=== PATIENT | female | born 1990 | race Caucasian/White ===

== ENCOUNTER 2019-05-22 10:18 | Emergency (ER) | payer MEDICAID, OTHER ==
[2019-05-22] MEDS ORDERED: NORMAL SALINE 1000 ML 1,000 ML IV ONE (10:54)
[2019-05-22] MEDS ORDERED: MECLIZINE HCL 25 MG TABLET PO ONE (10:55)
[2019-05-22] MEDS ORDERED: ONDANSETRON HCL INJ/PF 4 MG/2 ML SDV IV ONE (10:55)
[2019-05-22] MEDS ORDERED: DIAZEPAM INJ 10 MG/2 ML DISP.SYRIN IV ONE (10:56)
--- NOTE | 2019-05-22 10:59 | ER Document Report ---
ED Medical Screen (RME) - General Chief Complaint: General Weakness Stated Complaint: WEAKNESS Time Seen by Provider: 05/22/19 10:48 Primary Care Provider: SOL CASE MD [Primary Care Provider] - Follow up as needed Notes: HPI: 28-year-old female presenting with sudden onset of dizziness that began around 2 PM yesterday. Patient states that she has both a room spinning and off-balance sensation. This was accompanied by multiple episodes of vomiting. No trauma fever or recent illness. Went to [facility] yesterday, was given medication for migraine and discharged home. Symptoms have not improved she continues with nausea vomiting especially with standing or position change. No prior history of vertigo. I have greeted and performed a rapid initial assessment of this patient. A comprehensive ED assessment and evaluation of the patient, analysis of test results and completion of the medical decision making process will be conducted by additional ED providers PHYSICAL EXAMINATION: GENERAL: Well-appearing, well-nourished and in mild acute distress. HEAD: Atraumatic, normocephalic. EYES: sclera anicteric, conjunctiva are normal. Slight nystagmus with extraocular movements laterally worse to the right ENT: Moist mucous membranes. NECK: Normal range of motion LUNGS: Normal work of breathing, clear to auscultation HEART: 2+ radial pulses bilaterally, regular rate and rhythm ABD: limited by positioning for exam in triage. EXTREMITIES: no pitting or edema. No cyanosis. NEUROLOGICAL: No focal neurological deficits. Moves all extremities spontaneously and on command. No unilateral weakness is noted, no slurred speech, no facial droop PSYCH: Normal mood, normal affect. SKIN: Warm, Dry, normal turgor, no rashes or lesions noted. TRAVEL OUTSIDE OF THE [place] IN LAST 30 DAYS: No - Related Data Allergies/Adverse Reactions: No Known Allergies Allergy (Verified 05/22/19 10:49) Physical Exam - Vital signs Vitals: Temp Pulse Resp BP Pulse Ox 97.7 F 88 20 163/95 H 97 05/22/19 10:24 05/22/19 10:24 05/22/19 10:24 05/22/19 10:24 05/22/19 10:24 Course - Vital Signs Vital signs: Temp Pulse Resp BP Pulse Ox 97.7 F 88 20 163/95 H 97 05/22/19 10:24 05/22/19 10:24 05/22/19 10:24 05/22/19 10:24 05/22/19 10:24 Doctor's Discharge - Discharge Referrals: SOL CASE MD [Primary Care Provider] - Follow up as needed
--- NOTE | 2019-05-22 11:31 | RADIOLOGY REPORT (SQ) ---
EXAM DESCRIPTION: CT HEAD WITHOUT COMPLETED DATE/TIME: 05/22/2019 11:13 am REASON FOR STUDY: acute dizziness COMPARISON: None. TECHNIQUE: Axial images acquired through the brain without intravenous contrast. Images reviewed wi th bone, brain and subdural windows. Additional sagittal and coronal reconstructions were generated. Images stored on PACS. All CT scanners at this facility use dose modulation, iterative reconstruction, and/or weight based d osing when appropriate to reduce radiation dose to as low as reasonably achievable (ALARA). [facility]: Dose Right [facility]: CareDose [facility]: Dose Right [facility]: Teradose 4D [facility]: Smart RadioFrame RADIATION DOSE: CT Rad equipment meets quality standard of care and radiation dose reduction techniq ues were employed. CTDIvol: 53.2 mGy. DLP: 911 mGy-cm. mGy. LIMITATIONS: None. FINDINGS: VENTRICLES: Normal size and contour. CEREBRUM: No masses. No hemorrhage. No midline shift. No evidence for acute infarction. Normal gra y/white matter differentiation. No areas of low density in the white matter. CEREBELLUM: On axial image 7, a 1.7 x 1.3 cm area of decreased brain parenchymal attenuation is prese nt in the inferior medial right cerebellar hemisphere worrisome for an early subacute infarct, 1 day a 1-week-old. This is in the distribution of the right posterior inferior cerebellar artery. No sup erimposed acute hemorrhage. No mass effect on the 4th ventricle or posterior fossa midline shift. F indings discussed with Dr. Askew in the emergency room 1120 hours 05/22/2019. EXTRAAXIAL SPACES: No fluid collections. No masses. ORBITS AND GLOBE: No intra- or extraconal masses. Normal contour of globe without masses. CALVARIUM: No fracture. PARANASAL SINUSES: No fluid or mucosal thickening. SOFT TISSUES: No mass or hematoma. OTHER: No other significant finding. IMPRESSION: Early subacute nonhemorrhagic infarct in the inferior right cerebellar hemisphere, in th e PICA distribution. EVIDENCE OF ACUTE STROKE: YES. COMMENT: Report discussed with emergency room attending physician as above Quality ID # [id number]: Final reports with documentation of one or more dose reduction techniques (e.g., Au tomated exposure control, adjustment of the mA and/or kV according to patient size, use of iterative reconstruction technique) TECHNICAL DOCUMENTATION: JOB ID: [id number] 2010 [employer]- All Rights Reserved Reading location - IP/workstation name: [email or web address]
[2019-05-22 11:47] LABS: ABSOLUTE MONOCYTES (AUTO) 0.3 10^3/uL (0.1-1.4); ABSOLUTE NEUT (AUTO) 9.3 10^3/uL (1.7-8.2); BASOPHILS % (AUTO) 0.2 % (0-2); HEMATOCRIT 41.3 % (36.0-47.0); HEMOGLOBIN 14.8 g/dL (12.0-15.5); MEAN CORPUSCULAR HEMOGLOBIN 33.8 pg (27.0-33.4); MEAN CORPUSCULAR HGB CONC 35.8 g/dL (32.0-36.0); MEAN CORPUSCULAR VOLUME 94 fl (80-97); MONOCYTES % (AUTO) 3.2 % (3-13); PLATELET COUNT 380 10^3/uL (150-450); RED BLOOD COUNT 4.38 10^6/uL (3.72-5.28); RED CELL DISTRIBUTION WIDTH 12.8 % (11.5-14.0); SEGMENTED NEUTROPHILS % (AUTO) 87.6 % (42-78); TOTAL CELLS COUNTED % (AUTO) 100 %; WHITE BLOOD COUNT 10.6 10^3/uL (4.0-10.5)
--- NOTE | 2019-05-22 12:05 | ER Document Report ---
ED General - General Chief Complaint: Dizziness Stated Complaint: WEAKNESS Time Seen by Provider: 05/22/19 10:48 Primary Care Provider: SOL CASE MD [ACTIVE STAFF] - Follow up as needed Notes: 28-year-old female presents emergency department complaining of 1 month history of back and neck pain followed by development of a right-sided headache that is temporal and around the right eye for the past 5 to 7 days. Yesterday morning she felt dizzy and had significant weakness in her bilateral hands for approxi mately 20 minutes that then resolved. Around 2 PM the dizziness returned but not the weakness, she states that she started vomiting uncontrollably and that that the dizziness got worse with movement. Patient states that she went to [facility] yesterday, was treated with Benadryl, Tylenol and steroids as well as possibly some other medications. States that this gave her some temporary improvement but when she was discharged she felt like she got worse when she got in the car and started vomiting again. Patient's headache and vomiting has not improved since discharge yesterday so she presented here today. Denies any personal or family history of DVT, PE, stroke. Patient's only risk factor for stroke is control pills. TRAVEL OUTSIDE OF THE [place] IN LAST 30 DAYS: No - Related Data Allergies/Adverse Reactions: No Known Allergies Allergy (Verified 05/22/19 10:49) Past Medical History - General Information source: Patient - Social History Smoking Status: Never Smoker Chew tobacco use (# tins/day): No Frequency of alcohol use: None Drug Abuse: None Family History: Reviewed & Not Pertinent. denies: CAD, CVA Patient has suicidal ideation: No Patient has homicidal ideation: No Review of Systems - Review of Systems Constitutional: No symptoms reported EENT: Vertigo Cardiovascular: Dizziness. denies: Chest pain, Palpitations, Heart racing Respiratory: No symptoms reported Gastrointestinal: See HPI, Nausea, Vomiting Neurological/Psychological: See HPI, Headaches -: Yes All other systems reviewed and negative Physical Exam - Vital signs Vitals: Temp Pulse Resp BP Pulse Ox 97.7 F 88 20 163/95 H 97 05/22/19 10:24 05/22/19 10:24 05/22/19 10:24 05/22/19 10:24 05/22/19 10:24 Interpretation: Hypertensive - Notes Notes: GENERAL: Somewhat sleepy consistent with having recently received Valium, otherwise interacts well. No acute distress. HEAD: Normocephalic, atraumatic EYES: Pupils equal, round and reactive to light, extraocular movements intact. ENT: Oral mucosa moist, tongue midline. NECK: Full range of motion, supple, trachea midline. LUNGS: Clear to auscultation bilaterally, no wheezes, rales or rhonchi, no respiratory distress. HEART: Regular rate and rhythm, no murmurs, gallops, rubs. ABDOMEN: Soft, nontender, nondistended, bowel sounds present in all 4 quadrants. EXTREMITIES: Moves all 4 extremities spontaneously, no edema, radial and dorsalis pedis pulses 2/4 bilaterally. No cyanosis. NEUROLOGICAL: Alert and oriented x3, normal speech, cranial nerves II through XII grossly intact with the exception of very slight tongue deviation to the left, biceps and patellar DTRs 2+ bilaterally. Xydigv-vj-bprd and ofyl-ze-fbkg testing intact bilaterally. 5 out of 5 muscle strength in the upper and lower extremities. PSYCH: Normal mood, normal affect. SKIN: Warm, Dry, normal turgor, no rashes or lesions noted. Course - Re-evaluation Re-evalutation: 05/22/19 12:[address] 05/22/19 10:54 IMPRESSION: Early subacute nonhemorrhagic infarct in the inferior right cerebellar hemisphere, in the PICA distribution. EVIDENCE OF ACUTE STROKE: YES. Patient is not a candidate for TPA as her symptoms started at the latest yesterday morning but possibly as early as 7 days ago when her headache started. We will perform a CT angiogram of the head and the neck to rule out large vessel occlusion and also to rule out dissection. After this is resulted we will then discuss with comprehensive stroke center for possible transfer. Patient's dizziness is significantly improved with Valium from triage. 05/22/19 13:45 NIH stroke scale is 0. CTA of the head and neck shows right vertebral artery dissection. I did call [facility] to discuss this patient with them, initially discussed with Dr. Ghanshyam Cordova who recommends further discussion with Dr. Terrazas the interventionalists to see if he would recommend any surgical intervention versus anticoagulation versus antiplatelet therapy. Currently [facility] does not have any beds however if this is potentially an interventional candidate they may be able to find a bed. I am awaiting his phone call back. Patient denies any recent chiropractic or osteopathic manipulation to her neck. 05/22/19 14:[address] Terrazas who states that as there is compl ete occlusion they would not intervene at this point, states treatment at this point would be aspirin 325 mg daily, typical post stroke care and follow-up as an outpatient after typical post stroke care with neurology and work-up for connective tissue disorder possibly as an outpatient. There are no beds available at [facility], discussed patient with hospitalist Dr. Zurita for possible admission, she states given the patient's young age that she is hesitant to admit the patient here without neurology here locally, [facility] to discuss the patient further. 05/22/19 18:[address] Carrington from [facility] neurology, agrees with transferring the patient due to possible development of hydrocephalus based off of his interpretations of the films, he would like the patient admitted to the ICU, discussed case with Dr. Kelley in the ICU who accepts the patient to his service. Dr. Carrington agrees with treating with aspirin 325 mg. Patient will be transferred via ambulance. Patient complains of mild headache, no further vomiting, dizziness is controlled. - Vital Signs Vital signs: Temp Pulse Resp BP Pulse Ox 98.4 F 88 21 H 144/101 H 100 05/22/19 15:00 05/22/19 12:15 05/22/19 17:01 05/22/19 17:00 05/22/19 17:01 - Laboratory Result Diagrams: 05/22/19 11:32 05/22/19 11:32 Laboratory results interpreted by me: 05/22/19 05/22/19 05/22/19 11:32 11:32 11:32 WBC 10.6 H MCH 33.8 H Lymph % (Auto) 9.0 L Absolute Neuts (auto) 9.3 H Seg Neutrophils % 87.6 H Creatinine 0.46 L Total Protein 8.5 H TSH 0.45 L Urine Ketones 05/22/19 15:55 WBC MCH Lymph % (Auto) Absolute Neuts (auto) Seg Neutrophils % Creatinine Total Protein TSH Urine Ketones TRACE H Critical Care Note - Critical Care Note Total time excluding time spent on procedures (mins): 45 Discharge - Discharge Clinical Impression: Right vertebral artery dissection, 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 NIH scale should be completed with appropriate accompanying assessment tools. *: 2. The NIH should reflect what the patient is capable of doing and should not be coached by the clinician. 1a. Level of Consciousness: 0=Alert;keenly responsive -: 1=Drowsy -: 2=Obtunded -: 3=Coma/unresponsive or reflex to noxious stimuli. 1a. Responses: 0 1b. Orientation Questions: a. What month is it? -: b. How old are you? -: 0=Answers both questions correctly. -: 1=Answers one question correctly or patient is intubated or has orotracheal trauma. -: 2=Answers neither question correctly. 1b. Responses: 0 1c. Response to commands: a. Open and close eyes? -: b. Firewall Engineer and release hand? -: Credit is given despite weakness. Demonstration of task is permitted. Substitute command if hands cannot be used. -: 0=Performs both tasks correctly -: 1=Performs one task correctly -: 2=Performs neither task correctly 1c. Responses: 0 2. Gaze: Establish eye contact and instruct patient to "Follow my finger" -: 0=Normal -: 1=Partial gaze palsy. Gaze is abnormal in one or both eyes, but where forced deviation or total gaze paresis is not present. -: 2=Forced deviation or total gaze paresis. 2. Responses: 0 3. Visual Lion: Sees fingers in all four quadrants. -: 0=No visual loss. -: 1=Partial hemianopsia. -: 2=Complete hemianopsia. -: 3=Bilateral hemianopsia (including Cortical blindness) 3. Responses: 0 4. Facial Movement: Instruct patient to: -: a. Show me your teeth -: b. Raise your eyebrows -: c. Close your eyes -: d. Smile -: 0=Normal symmetrical movement -: 1=Minor paralysis (flattened nasolabial fold, asymmetry on smiling). -: 2=Partial paralysis (total or near total paralysis of lower face). -: 3=Complete paralysis of upper and lower face 4. Responses: 0 5. Motor functions (left arm): Alternate sides and extend each arm with palms down (90 degrees if sitting or 45 degrees for supine). -: 0=No drift;limb holds for full 10 seconds. -: 1=Drift; limb holds but drifts down before full 10 seconds, but does not hit bed. -: 2=Some effort against gravity; limb cannot get to or maintain position. -: 3=No effort against gravity; limb falls. -: 4=No movement. -: UN=Amputation, joint fusion, explain in comments. 5. Responses (left arm): 0 5. Motor Functions (right arm): Alternate sides and extend each arm with palms down (90 degrees if sitting or 45 degrees for supine). -: 0=No drift;limb holds for full 10 seconds. -: 1=Drift; limb holds but drifts down before full 10 seconds, but does not hit bed. -: 2=Some effort against gravity; limb cannot get to or maintain position. -: 3=No effort against gravity; limb falls. -: 4=No movement. -: UN=Amputation, joint fusion, explain in comments. 5. Responses (right arm): 0 6. Motor Functions (left leg): With patient lying supine, alternate sides and extend each leg (30 degrees always while supine). -: 0=No drift, leg holds position for full 5 seconds -: 1=Drift; leg falls before full 5 seconds but does not hit bed. -: 2=Some effort against gravity, leg falls to bed but some effort against gravity. -: 3=No effort against gravity, leg falls to bed immediately. -: 4=No movement. -: UN=Amputation, joint fusion; explain in comments. 6. Responses (left leg): 0 6. Motor Functions (right leg): With patient lying supine, alternate sides and extend each leg (30 degrees always while supine). -: 0=No drift, leg holds position for full 5 seconds -: 1=Drift; leg falls before full 5 seconds but does not hit bed. -: 2=Some effort against gravity, leg falls to bed but some effort against g ravity. -: 3=No effort against gravity, leg falls to bed immediately. -: 4=No movement. -: UN=Amputation, joint fusion; explain in comments. 6. Responses (right leg): 0 7. Limb Ataxia: With eyes open instruct patient to: -: a. "Touch your finger to your nose". -: b. "Touch your heel to your broussard" -: 0=Absent -: 1=Present in one limb. -: 2=Present in two limbs. -: UN=Amputation or joint fusion; explain in comments. 7. Responses: 0 8. Sensory: Test sensation using pinprick or noxious stimuli. Test as many body parts as possible. -: 0=Normal;no sensory loss -: 1=Mile to moderate sensory loss (patient feels pin prick but is less sharp on affected side). -: 2=Severe or total sensory loss. 8. Responses: 0 9. Best Language: Instruct patient to: -: a. "Describe what you see in this picture." -: b. "Name the items in this picture." -: c. "Read these sentences." -: 0=No aphasia, normal -: 1=Mild to moderate aphasia. -: 2=Severe aphasia -: 3=Mute, global aphasia, no usable speech or auditory comprehension. 9. Responses: 0 10. Articulation, Dysarthia: Instruct patient to: -: "Read these words" or "Repeat these words" -: 0=Normal -: 1=Mild to moderate; patient may slur some words but can be understood without difficulty. -: 2=Severe; patients speech so slurred as to be unintelligible in the absence of dysphasia. -: UN=Intubated or other physical barrier, explain in comments. 10. Responses: 0 11. Extinction or inattention: 0=No abnormality -: 1= Visual, tactile, auditory, spatial, or personal inattention or extinction to bilateral simulation in one or the sensory modalities. -: 2=Profound evan-inattention or evan-inattention to more than one modality; does not recognize own hand. 11. Responses: 0 Total Score: 0 ED Alteplase Inc/Exc Criteria - Date/Time patient last known well: Date/Time: 05/21/2019 9:00 a.m. - Date/Time patient arrived in ED: _: 11/22/2019 10:24 a.m. - Inclusion Criteria: 1: Patient presented to ED within 3 hours of acute ischemic stroke symptom onset? -: No 2: Did baseline CT exclude intracranial hemorrhage and/or other risk factors? -: Yes 3: Is the age of the patient 18 years of age or greater? -: Yes : If any of the above questions are answered "NO" then stop, patient is not a candidate for Alteplase, : If all of the above questions are answered "YES" then continue with Exclusion Criteria. - Exclusion Criteria: 1: Is there evidence of intracranial hemorrhage on baseline CT? -: No 2: Is there suspicion of subarachnoid hemorrhage (even if CT negative)? -: No 3: Is there a history of serious head trauma, recent previous stroke or CT wi thin 3 months? -: No 4: Does the patient have a clinical presentation consistent with CT or post-CT pericarditis? -: No 5: Is there history of intracranial hemorrhage? -: No 6: On repeated measurement is Systolic BP greater than 185mmHg or Diastolic BP greater that 110 mmHg and is aggressive treatment needed to reduce blood pressure to these limits (e.g. constant infusion of an anti-hypertensive)? -: No 7: Did the patient awake with stroke symptoms? -: No 8: Has the patient had a lumbar puncture or an arterial puncture at a non- compressile site within 7 days? -: No 9: With in the last 14 days did the patient have surgery or major trauma? -: No 10: Is the patient or less than 2 weeks? -: No 11: Was there any active bleeding or acute trauma? -: No 12: Does the patient have intracranial neoplasm, arteriovenous malformation or aneurysm? -: No 13: Does the patient have abnormal glucose (less than 50 or greater than 400mg/dl)? Record glucose in Comment. -: No 14: Patient has rapidly improving symptoms at the time Alteplase is to be Administered. -: No 15: Does the patient have any risks for bleeding, including but not limited to: a.: Current use of Coumadin with PT greater than 15 seconds or INR greater than 1.7. b.: Current use of Pradaxa (Dabigatran). c.: Heparin administereed within the past 48 hours and PTT elevated. d.: Platelet count less than 100,000/mm. e.: Major surgery or serious trauma within 14 days. f.: Gastrointestinal or gynecological urinary bleeding within 14 days. g.: Myocardial Infarction (CT) within 3 months. -: No : If the answer to any of the above questions is "YES" then stop, the patient is not a candidate for Alteplase. : If the answer to all of the above questions is "NO" then the patient may be eligible for the Administration of Alteplase. : If the patient is noted to have seizure activity at onset of Stroke symptoms; Consult Neurologist for further evaluation. - The patient is: -: Included and is eligible to receive Alteplase. *Initiate bed placement at higher level of care* --: No - out of timeframe, >24 hours Reviewed risks & benefits of thrombolytic therapy: I have reviewed the risks and benefits of thrombolytic therapy with the patient and/or his/her family. -: Excluded and not eligible to receive Alteplase for the above exclusions. --: Yes - out of time frame -: Excluded and not eligible to receive Alteplase for other reasons (specify in comments): - Diagnosis of TIA: -: Patient presented with transient symptoms that are now resolved and no other neurologic findings are currently present. List symptoms in comments. -: Patient is NOT a candidate for tPA. -: ____(put name in comment) has been consulted for admission and continued evaluation of risk factor assessment.
[2019-05-22 12:06] LABS: ALBUMIN 4.9 g/dL (3.5-5.0); ALKALINE PHOSPHATASE 72 U/L (38-126); ANION GAP 13 (5-19); ASPARTATE AMINO TRANSFERASE 25 U/L (14-36); BILIRUBIN,DIRECT 0.2 mg/dL (0.0-0.4); BILIRUBIN,TOTAL 0.5 mg/dL (0.2-1.3); BLOOD UREA NITROGEN 11 mg/dL (7-20); CALCIUM 9.7 mg/dL (8.4-10.2); CARBON DIOXIDE 25 mmol/L (22-30); CHLORIDE 102 mmol/L (98-107); GLUCOSE 98 mg/dL (75-110); TOTAL PROTEIN 8.5 g/dL (6.3-8.2)
[2019-05-22 12:10] LABS: INTERNATIONAL RATION (INR) 0.97
[2019-05-22 12:11] LABS: PARTIAL THROMBOPLASTIN TIME 24.2 SEC (23.5-35.8)
[2019-05-22 12:17] LABS: PROTHROMBIN TIME 12.9 SEC (11.4-15.4)
[2019-05-22 12:29] LABS: CREATINE KINASE MB 1.65 ng/mL (<4.55)
[2019-05-22 12:33] LABS: TROPONIN I < 0.012 ng/mL
--- NOTE | 2019-05-22 13:07 | EKG REPORT ---
SEVERITY:- NORMAL ECG - SINUS RHYTHM : Confirmed by: Bandar Barraza MD 22-May-2019 13:06:46
--- NOTE | 2019-05-22 13:16 | RADIOLOGY REPORT (SQ) ---
EXAM DESCRIPTION: CTA HEAD; CTA NECK COMPLETED DATE/TIME: 05/22/2019 12:45 pm; 05/22/2019 12:47 pm COMPARISON: CT brain 05/22/2019 TECHNIQUE: Post IV contrast scanning, thin section axial imaging through the brain to evaluate the a rterial structures. Source and MIP images are saved and reviewed on PACS. Post IV contrast scanning, thin section axial imaging through the neck soft tissues to evaluate the a rterial structures. Source and MIP images are saved and reviewed on PACS. Advanced 3D imaging as volume-rendering, MIPs, SSD performed? yes All CT scanners at this facility use dose modulation, iterative reconstruction, and/or weight based d osing when appropriate to reduce radiation dose to as low as reasonably achievable (ALARA). [facility]: Dose Right [facility]: CareDose [facility]: Dose Right [facility]: Teradose 4D [facility]: Fusion Smoothies CONTRAST TYPE AND DOSE: contrast/concentration: Isovue 350.00 mg/ml; Total Contrast Delivered: 70.0 ml; Total Saline Delivered: 75.0 ml RENAL FUNCTION: None required. The patient is less than 50 years old. RADIATION DOSE: CT Rad equipment meets quality standard of care and radiation dose reduction technAppercode ues were employed. CTDIvol: 10.5 - 22.0 mGy. DLP: 409 mGy-cm. LIMITATIONS: None. FINDINGS: [place]: The anterior, middle, posterior cerebral arteries are all patent. No ev idence of aneurysm or focal stenosis. POSTERIOR CIRCULATION: At the skullbase, the right vertebral artery is occluded. No flow is seen in the right vertebral artery at the level of C1/foramen magnum or along the right posterior inferior ce rebellar artery. This correlates with the small infarcts seen on CT brain earlier today. The right vertebral artery is tiny throughout the neck, from vertebral artery dissection. The left distal intracranial vertebral artery, left PICA, basilar artery, bilateral middle and superi or cerebellar arteries, bilateral posterior cerebral arteries enhance normally. BRAIN: Small subacute nonhemorrhagic infarct right posterior inferior cerebellar hemisphere. Remaind er the brain parenchyma is otherwise unremarkable. BONES: Intact as visualized. SINUSES: No fluid or mucosal thickening. OTHER: No other significant finding. AORTIC ARCH: Normal three-vessel origin. Bilateral subclavian arteries are patent. No aortic dissec tion. RIGHT CAROTIDS: Patent common, internal and external carotid arteries without suggestion of significa nt stenosis or irregular plaque. No dissection. RIGHT VERTEBRAL: The right vertebral artery is small throughout the neck, with luminal irregularity c ompatible with right vertebral artery dissection. Dissection is present from just beyond its origin all the way through the distal right vertebral intracranial segment right. The right vertebral arter y dissection is also evident on maximum intensity projections series 203, images 24-30. This finding was discussed with Dr. Bloom in the emergency room, 1250 hours 05/22/2019 LEFT CAROTIDS: Patent common, internal and external carotid arteries without suggestion of significan t stenosis or irregular plaque. No dissection. LEFT VERTEBRAL: Patent. No dissection. OTHER: 3-D reconstructions confirm findings. 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 Small nonhemorrhagic subacute infarct right inferior cerebellar hemisphere Findings discussed with the emergency room attending physician as above. TECHNICAL DOCUMENTATION: JOB ID: [id number] Quality ID # [id number]: Final reports with documentation of one or more dose reduction techniques (e.g., Au tomated exposure control, adjustment of the mA and/or kV according to patient size, use of iterative reconstruction technique) 2010 [employer]- All Rights Reserved REASON FOR STUDY: cerebellar stroke, look for LVO vs dissection Posterior neck pain/back pain for 1 week Reading location - IP/workstation name: [email or web address]
--- NOTE | 2019-05-22 13:16 | RADIOLOGY REPORT (SQ) ---
EXAM DESCRIPTION: CTA HEAD; CTA NECK COMPLETED DATE/TIME: 05/22/2019 12:45 pm; 05/22/2019 12:47 pm COMPARISON: CT brain 05/22/2019 TECHNIQUE: Post IV contrast scanning, thin section axial imaging through the brain to evaluate the a rterial structures. Source and MIP images are saved and reviewed on PACS. Post IV contrast scanning, thin section axial imaging through the neck soft tissues to evaluate the a rterial structures. Source and MIP images are saved and reviewed on PACS. Advanced 3D imaging as volume-rendering, MIPs, SSD performed? yes All CT scanners at this facility use dose modulation, iterative reconstruction, and/or weight based d osing when appropriate to reduce radiation dose to as low as reasonably achievable (ALARA). [facility]: Dose Right [facility]: CareDose [facility]: Dose Right [facility]: Teradose 4D [facility]: Rithmio CONTRAST TYPE AND DOSE: contrast/concentration: Isovue 350.00 mg/ml; Total Contrast Delivered: 70.0 ml; Total Saline Delivered: 75.0 ml RENAL FUNCTION: None required. The patient is less than 50 years old. RADIATION DOSE: CT Rad equipment meets quality standard of care and radiation dose reduction technAction Online Publishing ues were employed. CTDIvol: 10.5 - 22.0 mGy. DLP: 409 mGy-cm. LIMITATIONS: None. FINDINGS: [place]: The anterior, middle, posterior cerebral arteries are all patent. No ev idence of aneurysm or focal stenosis. POSTERIOR CIRCULATION: At the skullbase, the right vertebral artery is occluded. No flow is seen in the right vertebral artery at the level of C1/foramen magnum or along the right posterior inferior ce rebellar artery. This correlates with the small infarcts seen on CT brain earlier today. The right vertebral artery is tiny throughout the neck, from vertebral artery dissection. The left distal intracranial vertebral artery, left PICA, basilar artery, bilateral middle and superi or cerebellar arteries, bilateral posterior cerebral arteries enhance normally. BRAIN: Small subacute nonhemorrhagic infarct right posterior inferior cerebellar hemisphere. Remaind er the brain parenchyma is otherwise unremarkable. BONES: Intact as visualized. SINUSES: No fluid or mucosal thickening. OTHER: No other significant finding. AORTIC ARCH: Normal three-vessel origin. Bilateral subclavian arteries are patent. No aortic dissec tion. RIGHT CAROTIDS: Patent common, internal and external carotid arteries without suggestion of significa nt stenosis or irregular plaque. No dissection. RIGHT VERTEBRAL: The right vertebral artery is small throughout the neck, with luminal irregularity c ompatible with right vertebral artery dissection. Dissection is present from just beyond its origin all the way through the distal right vertebral intracranial segment right. The right vertebral arter y dissection is also evident on maximum intensity projections series 203, images 24-30. This finding was discussed with Dr. Bloom in the emergency room, 1250 hours 05/22/2019 LEFT CAROTIDS: Patent common, internal and external carotid arteries without suggestion of significan t stenosis or irregular plaque. No dissection. LEFT VERTEBRAL: Patent. No dissection. OTHER: 3-D reconstructions confirm findings. 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 Small nonhemorrhagic subacute infarct right inferior cerebellar hemisphere Findings discussed with the emergency room attending physician as above. TECHNICAL DOCUMENTATION: JOB ID: [id number] Quality ID # [id number]: Final reports with documentation of one or more dose reduction techniques (e.g., Au tomated exposure control, adjustment of the mA and/or kV according to patient size, use of iterative reconstruction technique) 2010 [employer]- All Rights Reserved REASON FOR STUDY: cerebellar stroke, look for LVO vs dissection Posterior neck pain/back pain for 1 week Reading location - IP/workstation name: [email or web address]
[2019-05-22] MEDS ORDERED: ASPIRIN 325 MG TABLET PO ONE (15:34)
[2019-05-22 16:26] LABS: APPEARANCE,URINE SLIGHTLY-CLOUDY; BILIRUBIN,URINE NEGATIVE (NEGATIVE); COLOR,URINE STRAW; GLUCOSE, URINE NEGATIVE (NEGATIVE); KETONES,URINE TRACE mg/dL (NEGATIVE); LEUKOCYTE ESTERASE,URINE NEGATIVE (NEGATIVE); NITRITE,URINE NEGATIVE (NEGATIVE); PROTEIN,URINE NEGATIVE (NEGATIVE); URINE SPECIFIC GRAVITY 1.032; UROBILINOGEN,URINE NEGATIVE mg/dL (<2.0)
[2019-05-22] MEDS ORDERED: ACETAMINOPHEN 100 ML IV ONE (18:44)
[2019-05-22] MEDS ORDERED: ACETAMINOPHEN 1,000 MG/100 ML RTUPB IV ONE (19:30)
[2019-05-22 21:00] VITALS: BP 117/78
== END 2019-05-22 21:00 | disposition short-term general hospital (02) ==
LOC: ER 10:18
DX: I63.541 Cerebral infarction due to unspecified occlusion or stenosis of right cerebellar artery (principal); R42 Dizziness and giddiness; R51 Headache; R11.2 Nausea with vomiting, unspecified; M54.2 Cervicalgia; M54.9 Dorsalgia, unspecified; R29.700 NIHSS score 0; Z79.3 Long term (current) use of hormonal contraceptives
CPT/HCPCS: 93005; 99291; 96361; 96375; 96365; 36415; 82553; 82550; 84443; 84703; 85025; 85610; 85730; 80053; 81001; 84484; 70450; 70496; 70498; 93010; J3360; J2405; J7030; J0131